=== PATIENT | female | born 1980 | race African-American/Black ===

== ENCOUNTER 2020-12-17 20:17 | Emergency (ER) | payer BC ==
[~2020-12-17] VITALS: Ht 162.6 cm; Wt 95.3 kg
[~2020-12-17 20:17] MED LIST: ACETAMINOPHEN325 M1 PO; PROVENTIL HFA INH; ZPAK PO
[2020-12-17 21:24] VITALS: BP 141/70
== END 2020-12-17 21:25 | disposition home or self-care (01) ==
LOC: M.ERS 20:17
DX: S93.402A Sprain of unspecified ligament of left ankle, initial encounter (principal); G43.909 Migraine, unspecified, not intractable, without status migrainosus; Z88.5 Allergy status to narcotic agent; X50.1XXA Overexertion from prolonged static or awkward postures, initial encounter; Y93.89 Activity, other specified; Y92.89 Other specified places as the place of occurrence of the external cause; Y99.8 Other external cause status